=== PATIENT | female | born 1995 | race Caucasian/White ===

== ENCOUNTER 2017-02-04 18:50 | Emergency (ER) | payer SELFPAY ==
--- NOTE | 2017-02-04 19:25 | ED.PDOC ---
History of Present Illness - General Chief Complaint: LOGISTICS/SHIPPER Problem Stated Complaint: vaginal bleeding, positive home test Time Seen by Provider: 02/04/17 19:15 Source: patient, RN notes reviewed, Vital Signs reviewed Exam Limitations: no limitations - History of Present Illness Initial Comments: Patient comes in with c/o vaginal bleeding today. She took a home test December 18 which was positive X2. She has not seen an LOGISTICS/SHIPPER yet. Today she had a gush of blood as heavy as a period with small chunks. After initial bleed now just having a small amount of bleeding. No cramping or pain. Timing/Duration: this evening Quality: moderate Onset Location: vaginal Radiation: none Activites at Onset: rest Prior abdominal problems: none Sexual intercourse history: single partner Improving Factors: nothing Worsening Factors: nothing Associated Symptoms: denies symptoms Allergies/Adverse Reactions: Allergies NO KNOWN ALLERGY Allergy (Unverified 11/18/12 05:21) Home Medications: Ambulatory Orders Amoxicillin [Amoxil] 500 mg PO TID #30 cap 02/04/17 Review of Systems - Review of Systems Constitutional: States: no symptoms reported Respiratory: States: no symptoms reported Cardiology: States: no symptoms reported Gastrointestinal/Abdominal: States: no symptoms reported. Denies: abdominal pain Genitourinary: States: see HPI Musculoskeletal: States: no symptoms reported Skin: States: no symptoms reported All other Systems: No Change from Baseline Past Medical History (General) - Patient Medical History Hx Stroke: No Hx Congestive Heart Failure: No Hx Diabetes: No Hx Renal Disease: No - Vaccination History Hx Influenza Vaccination: No Immunizations Up to Date: No - Social History Hx Tobacco Use: Yes Hx Substance Use: No - Female History Patient is a Female of Child Bearing Age (10 -59 yrs old): Yes Hx Last Menstrual Period: 11/29/16 Patient : Yes Expected Date of Delivery:: 11/14/12 - Triage Comment ED Triage Comment: pt also states has tooth ache due to abcess. Took round of amoxil per dentist. Still painful Family Medical History - Family History Father Living Status: Still Living Hx Family Congestive Heart Failure: Yes Hx Family Hypertension: Yes Hx Family Diabetes: Yes Physical Exam - Physical Exam General Appearance: Anxious, Comfortable, No apparent distress, Well Developed, Well Groomed, Well Hydrated, Well Nourished Neck: normal inspection Cardiovascular/Respiratory: regular rate, rhythm, no M/R/G, normal breath sounds , no respiratory distress Gastrointestinal/Abdominal: normal bowel sounds, non tender, soft, no organomegaly, no pulsatile mass Extremity: normal inspection Neurologic: alert, normal mood/affect, oriented x 3 Skin Exam: normal color, warm/dry Comments: Vital Signs 02/04/17 19:07 Temperature 98.1 F Pulse Rate [ 98 H Left] Respiratory 16 Rate Blood Pressure 110/72 [Left Arm] O2 Sat by Pulse 98 Oximetry Progress - Progress Progress: 02/04/17 20:35 Discussed lab results with patient. Hcg shows she is 3-4 weeks which does not go along with a + test on December 18. Most likely having a miscarriage. Will need to follow up with [facility] for repeat labs and possible sonogram. 02/04/17 20:38 She requested antibiotics for an abscessed tooth. Will given Amoxicillin - Results/Orders Results/Orders: Laboratory Tests 02/04/17 02/04/17 02/04/17 19:15 19:25 19:25 WBC 11.3 H RBC 4.02 L Hgb 12.5 Hct 36.2 MCV 89.9 MCH 31.0 MCHC 34.6 RDW 12.4 Plt Count 253 MPV 7.6 Absolute Neuts (auto) 7.20 H Absolute Lymphs (auto) 3.40 Absolute Monos (auto) 0.50 Absolute Eos (auto) 0.10 Absolute Basos (auto) 0.10 Neutrophils % 64.1 Lymphocytes % 30.4 Monocytes % 4.2 Eosinophils % 0.8 L Basophils % 0.5 Beta HCG, Quant 4804.0 H Urine Color Red H Urine Appearance Turbid Urine pH 6.0 Ur Specific [place] >= 1.030 Urine Protein 100 H Urine Glucose (UA) Negative Urine Ketones Trace Urine Blood Large H Urine Nitrite Negative Urine Bilirubin Small H Urine Urobilinogen 0.2 Ur Leukocyte Esterase Trace H Urine RBC Tntc H Urine WBC 0-1 Ur Epithelial Cells Tntc Urine Bacteria 3+ H Departure - Departure Clinical Impression: Incomplete Time of Disposition: 20:37 Disposition: Discharge to Home or Self Care Condition: Good Departure Forms: ED Discharge - Pt. Copy, Patient Portal Self Enrollment Instructions: DI for Miscarriage Diet: resume usual diet Activity: increase activity as tolerated Referrals: Jenifer Mazariegos NP [Primary Care Provider] - 1-2 Weeks Robbie Kumar MD [Active Staff] - 1-5 Days Prescriptions: Amoxicillin [Amoxil] 500 mg PO TID #30 cap Home Medications: Ambulatory Orders Amoxicillin [Amoxil] 500 mg PO TID #30 cap 02/04/17
[2017-02-04 20:45] VITALS: BP 109/69; TEMP 98; O2SAT 99
== END 2017-02-04 20:45 | disposition home or self-care (01) ==
LOC: ER 18:50
DX: O03.4 Incomplete spontaneous abortion without complication (principal); Z87.891 Personal history of nicotine dependence

== ENCOUNTER 2020-02-04 14:00 | Emergency (ER) | payer SELFPAY ==
[2020-02-04] MEDS ORDERED: SODIUM CHLORIDE 0.9% 1000ML 1,000 ML IVS ONE (14:15)
[2020-02-04] MEDS ORDERED: ONDANSETRON INJ 4 MG/2 ML VIAL IV ONE (14:15)
--- NOTE | 2020-02-04 14:25 | ED.PDOC ---
History of Present Illness - General Time Seen by Provider: 02/04/20 14:14 Source: patient, RN notes reviewed, Vital Signs reviewed Exam Limitations: no limitations - History of Present Illness Initial Comments: Patient is a 24-year-old female with no past medical history who presents the ED for 5-day history of right upper toothache and today developed nausea, vomiting and feeling dizzy. States she has had a right upper tooth ache for several days and has an appointment with a dentist next Saturday. Today, she began feeling nauseated this morning and vomited twice and following this she felt dizzy and lightheaded and came to ED for evaluation. Her dizziness has now resolved but continues to have right upper tooth ache and mild nausea. She denies any abdominal or pelvic pain, dysuria, hematuria, fever or diarrhea. Her last menstrual period was 8 days ago. Allergies/Adverse Reactions: Allergies NO KNOWN ALLERGY Allergy (Unverified 02/04/20 14:31) Home Medications: Ambulatory Orders Amoxicillin [Amoxil] 500 mg PO TID 10 Days cap 02/04/20 Ondansetron HCl [Zofran] 4 mg PO Q6HR PRN #15 tab 02/04/20 Review of Systems - Review of Systems Constitutional: Denies: chills, fever, weakness EENTM: States: other - right upper toothache. Denies: blurred vision, nose congestion, throat pain Respiratory: Denies: cough, short of breath Cardiology: Denies: chest pain, palpitations, syncope Gastrointestinal/Abdominal: States: nausea, vomiting. Denies: abdominal pain, diarrhea Genitourinary: Denies: dysuria, frequency, hematuria Musculoskeletal: Denies: back pain, joint pain, joint swelling, muscle pain Skin: States: no symptoms reported Neurological: States: other - light headed, dizzy Endocrine: States: no symptoms reported All other Systems: Reviewed and Negative Past Medical History (General) - Patient Medical History Hx Stroke: No Hx Congestive Heart Failure: No Hx Diabetes: No Hx Renal Disease: No - Vaccination History Hx Influenza Vaccination: No - Social History Hx Tobacco Use: Yes Hx Substance Use: No - Female History Hx Last Menstrual Period: 11/29/16 Patient : Yes Expected Date of Delivery:: 11/14/12 Family Medical History - Family History Father Living Status: Still Living Hx Family Congestive Heart Failure: Yes Hx Family Hypertension: Yes Hx Family Diabetes: Yes Physical Exam - Physical Exam General Appearance: Alert, Comfortable, No apparent distress - Bilateral TMs have no erythema or effusion. Oropharynx has no erythema, edema or exudates. Right upper incisor is tender to palpation, but no abscess is seen. Neck: non-tender, full range of motion, supple Respiratory: chest non-tender, lungs clear, normal breath sounds, no respiratory distress, no accessory muscle use Cardiovascular/Chest: regular rate, rhythm, no edema Gastrointestinal/Abdominal: non tender, soft, no pulsatile mass Back Exam: no CVA tenderness Extremity: normal range of motion, non-tender, no calf tenderness Neurologic: other - Cranial nerves are intact. Strength is 5 out of 5 in all extremities. She is alert and oriented x4 with no neuro deficits on exam Skin Exam: normal color, warm/dry Progress - Progress Progress: 02/04/20 14:27 Patient presents with 5-day history of right upper tooth ache. This morning she states she became nauseated and vomited x2 and then felt dizzy and lightheaded. The lightheadedness and dizziness is now resolved. She has no neuro deficits on her exam. Vital signs are reassuring. Will check labs and urine and give IV fluids and nausea medicine and continue to evaluate in ED. 02/04/20 16:01 Patient feels improved post IV fluids and Zofran. She is tolerating p.o. fluids well. Has been ambulatory and in the ED without difficulty. Discussed with patient will start antibiotic for dental pain and have asked her to follow-up with a dentist in 2 to 3 days for definitive care. Strict return precautions given. - Results/Orders Results/Orders: Laboratory Results - last 24 hr 02/04/20 02/04/20 02/04/20 14:22 14:22 14:22 WBC 10.3 RBC 4.61 Hgb 14.6 Hct 41.8 MCV 90.5 MCH 31.7 H MCHC 35.0 RDW 13.0 Plt Count 289 MPV 8.8 Absolute Neuts (auto) 5.90 Absolute Lymphs (auto) 3.70 H Absolute Monos (auto) 0.50 Absolute Eos (auto) 0.10 Absolute Basos (auto) 0.10 Neutrophils % 56.9 Lymphocytes % 36.1 Monocytes % 4.7 Eosinophils % 1.2 Basophils % 1.1 Sodium 137 Potassium 3.7 Chloride 106 Carbon Dioxide 21 Anion Gap 13.7 BUN 10 Creatinine 0.72 BUN/Creatinine Ratio 13.9 Random Glucose 93 Serum Osmolality 272.6 L Calcium 9.4 Serum HCG, Qual Negative Urine Color Urine Appearance Urine pH Ur Specific [place] Urine Protein Urine Glucose (UA) Urine Ketones Urine Blood Urine Nitrite Urine Bilirubin Urine Urobilinogen Ur Leukocyte Esterase Urine RBC Urine WBC Ur Epithelial Cells Amorphous Sediment Urine Bacteria Urine Mucus 02/04/20 15:17 WBC RBC Hgb Hct MCV MCH MCHC RDW Plt Count MPV Absolute Neuts (auto) Absolute Lymphs (auto) Absolute Monos (auto) Absolute Eos (auto) Absolute Basos (auto) Neutrophils % Lymphocytes % Monocytes % Eosinophils % Basophils % Sodium Potassium Chloride Carbon Dioxide Anion Gap BUN Creatinine BUN/Creatinine Ratio Random Glucose Serum Osmolality Calcium Serum HCG, Qual Urine Color Yellow Urine Appearance Sl cloudy Urine pH 6.0 Ur Specific [place] 1.025 Urine Protein Negative Urine Glucose (UA) Negative Urine Ketones Trace Urine Blood Moderate H Urine Nitrite Negative Urine Bilirubin Small H Urine Urobilinogen 0.2 Ur Leukocyte Esterase Trace H Urine RBC 1-3 Urine WBC 1-3 Ur Epithelial Cells 3-5 Amorphous Sediment 2+ Urine Bacteria 1+ Urine Mucus Large Departure - Departure Clinical Impression: Dental abscess Non-intractable vomiting Qualifiers: Vomiting type: unspecified Nausea presence: with nausea Qualified Code(s): R11.2 - Nausea with vomiting, unspecified Time of Disposition: 15:59 Disposition: Discharge to Home or Self Care Condition: Good Instructions: Dental Pain (DC) Diet: resume usual diet Activity: increase activity as tolerated Referrals: Jenifer Mazariegos NP [Primary Care Provider] - 1-2 Days Prescriptions: Ondansetron HCl [Zofran] 4 mg PO Q6HR PRN #15 tab PRN Reason: Nausea Amoxicillin [Amoxil] 500 mg PO TID 10 Days cap Home Medications: Ambulatory Orders Amoxicillin [Amoxil] 500 mg PO TID 10 Days cap 02/04/20 Ondansetron HCl [Zofran] 4 mg PO Q6HR PRN #15 tab 02/04/20 Additional Instructions: Follow up with your dentist within 1 week for continued evaluation
[2020-02-04 16:20] VITALS: BP 104/65; TEMP 97.6; O2SAT 99
== END 2020-02-04 16:20 | disposition home or self-care (01) ==
LOC: ER 14:00
DX: K04.7 Periapical abscess without sinus (principal); R11.2 Nausea with vomiting, unspecified; R42 Dizziness and giddiness; F17.200 Nicotine dependence, unspecified, uncomplicated
CPT/HCPCS: 36415; 80048; 81001; 84703; 85025; J2405; J7030